=== PATIENT | female | born 1990 | race Caucasian/White ===

== ENCOUNTER 2017-12-13 13:03 | Inpatient (IN) | payer BC ==
[2017-12-13] MEDS ORDERED: NS 1,000 ML IV ONE ×2 (13:07→14:28)
--- NOTE | 2017-12-13 13:09 | EDPHY ---
H & P Time Seen by Provider: 12/13/17 13:07 HPI/ROS: CHIEF COMPLAINT: Altered status HISTORY OF PRESENT ILLNESS: Patient is a 27-year-old female who is brought in by EMS unresponsive. Her roommate states that she was acting normally last night but has a history anxiety and ADD. She did not get up this morning and that went into her room around 12:30 this afternoon and found her unresponsive. She occasionally moans and will respond to painful stimuli. She is moving all extremities spontaneously. No signs of trauma. She takes Klonopin, abuse for Adderall regularly. Her pill bottles were brought in with her in appear to have normal counts. She has stable vital signs. REVIEW OF SYSTEMS: Unable to obtain secondary to condition EXAM: GENERAL: Will open eyes, will groan, response to painful stimuli HEAD: Atraumatic, normocephalic. EYES: Pupils for equal round and reactive to light, extraocular movements intact, sclera anicteric, conjunctiva are normal. ENT: TMs normal, nares patent, oropharynx clear without exudates. Moist mucous membranes. NECK: Normal range of motion, supple without lymphadenopathy or JVD. LUNGS: Breath sounds clear to auscultation bilaterally and equal. No wheezes rales or rhonchi. HEART: Regular rate and rhythm without murmurs, rubs or gallops. ABDOMEN: Soft, nontender, normoactive bowel sounds. No guarding, no rebound. No masses appreciated. BACK: No CVA tenderness, no spinal tenderness, step-offs or deformities EXTREMITIES: Normal range of motion, no pitting or edema. No clubbing or cyanosis. NEUROLOGICAL: Does not cooperate with cranial nerve exam. Moaning. 5/5 strength, normal movement in all extremities PSYCH: Unresponsive SKIN: Warm, dry, normal turgor, no visible rashes or lesions. Source: EMS Exam Limitations: Clinical condition - Medical/Surgical History Other PMH: Able to obtain - Family History Significant Family History: Other (Unknown) - Social History Additional Social History: Unknown due to condition Constitutional: Initial Vital Signs Temperature (C) 36.8 C 12/13/17 13:11 Heart Rate 90 12/13/17 13:11 Respiratory Rate 18 12/13/17 13:11 Blood Pressure 113/84 H 12/13/17 13:11 O2 Sat (%) 100 12/13/17 13:11 O2 Delivery Mode Room Air Allergies/Adverse Reactions: No Known Allergies Allergy (Verified 12/14/17 09:20) Home Medications: Medication Instructions Recorded busPIRone [Buspar (*)] 10 mg PO Q8H PRN 12/13/17 clonazePAM [klonoPIN (*)] 1 mg PO Q12H PRN 12/13/17 lamoTRIgine [LamICTAL] 50 mg PO DAILY 12/13/17 Amphet Asp and D/Amphet [Adderall 10 mg PO BID 12/14/17 10 MG (*)] Amphetamine/Dex 15mg 15 mg PO BID 12/14/17 Aspirin/Acetaminophen/Caffeine 1 each PO DAILY PRN 12/14/17 [Excedrin Extra Strength Caplet] Dextroamphetamine/Amphetamine 30 mg PO ,12/14/17 [Adderall Xr 30 mg Capsule] Lisdexamfetamine Dimesylate 70 mg PO DAILY 12/14/17 [Vyvanse] Lurasidone HCl [Latuda] 20 mg PO DAILY 12/14/17 Oxcarbazepine [Oxcarbazepine] 150 mg PO DAILY 12/14/17 Oxcarbazepine [Oxcarbazepine] 300 mg PO DAILY 12/14/17 Medical Decision Making - Diagnostics EKG Interpretation: An EKG obtained and was read and documented in trace view. Please see trace view for full reading and report. Sinus rhythm, no interval abnormalities Imaging: Discussed imaging studies w/ inbound sales consultant Radiologist ED Course/Re-evaluation: 2:00 p.m. the patient has low bicarb and increased anion gap. Alcohol level is negative. Glucose is normal. According to paramedics no sign of toxic alcohol ingestion. Her salicylates are normal. Will add on a CK-MB, carboxyhemoglobin level, arterial blood gas, will need to catheterized for urine. 10:30 p.m. the patient remains unresponsive. We were able to speak with dad states she has had chronic headaches and abdominal pain for the last several weeks. He states that she has a history of alcoholism and polysubstance abuse and has been to rehab. He also commented that she has taken too much sleep medicine the past an effort to sleep. He also states that he could not contact her this morning that he is the one that called police who broke down her door and found her unresponsive. 2:40 p.m. I discussed the case with Dr. Josselyn Rowell who will admit to the ICU. She requests lactate and blood cultures be sent. At this point the patient is not consistent for sepsis because she does not have a source of infection and is not febrile and does not have white count. I suspect toxic alcohol verses other toxin at this point. She could have alcoholic ketoacidosis however she is not tremulous or tachycardic or showing signs of withdrawal. 3:00 p.m. the patient does have diffuse fatty liver seen on abdominal CT. She is slightly elevated LFTs. Her Tylenol level is normal but I will start N- acetylcysteine in case. Differential Diagnosis: Partial list of the Differential diagnosis considered include but were not limited to; overdose, head injury, suicidality and although unlikely based on the history and physical exam, I also considered infection, abdominal catastrophe. Critical Care Time: Critical care time spent by me, Dr. Banks exclusive with this patient was 45 minutes, exclusive of the PA time exclusive of procedures. The organ system that was at risk was cardiovascular and I gave IV fluids, consultation, lab work , admission to prevent worsening of the patient's condition - Data Points Laboratory Results: Laboratory Results 12/13/17 13:10 12/13/17 13:10 Medications Given: Enoxaparin Sodium (Lovenox) 40 mg SC DAILY CLYDE Stop: 06/12/18 08:59 Last Admin: 12/14/17 08:58 Dose: 40 mg Potassium Chloride 40 meq/ (Sodium Chloride) 1,000 mls @ 75 mls/hr IV CONT CLYDE Stop: 06/12/18 13:59 Last Admin: 12/14/17 21:00 Dose: 1,000 mls Famotidine/Sodium Chloride (Pepcid 20 Mg (Premix)) 50 mls @ 200 mls/hr IV Q12HRS CLYDE Stop: 06/12/18 20:59 Last Admin: 12/14/17 23:50 Dose: 50 mls Potassium Chloride (Potassium Cl 10 Meq (Premix)) 100 mls @ 100 mls/hr IV Q1H CLYDE Stop: 12/15/17 09:29 Last Admin: 12/15/17 06:03 Dose: 100 mls Discontinued Medications Sodium Chloride (Ns) 1,000 mls @ 0 mls/hr IV ONCE ONE; Wide Open PRN Reason: Protocol Stop: 12/13/17 13:08 Last Admin: 12/13/17 13:17 Dose: 1,000 mls Sodium Chloride (Ns) 1,000 mls @ 0 mls/hr IV ONCE ONE; Wide Open PRN Reason: Protocol Stop: 12/13/17 14:29 Last Admin: 12/13/17 14:34 Dose: 1,000 mls Acetylcysteine 8,850 mg/ (Dextrose) 244.25 mls @ 244.25 mls/hr IV ONCE ONE Stop: 12/13/17 16:29 Last Admin: 12/13/17 15:49 Dose: 244.25 mls Acetylcysteine 2,950 mg/ (Dextrose) 514.75 mls @ 128.688 mls/hr IV ONCE ONE Stop: 12/13/17 20:29 Last Admin: 12/13/17 17:00 Dose: 514.75 mls Acetylcysteine 5,900 mg/ (Dextrose) 1,029.5 mls @ 64.344 mls/hr IV ONCE ONE Stop: 12/14/17 12:29 Last Admin: 12/13/17 21:43 Dose: 1,029.5 mls Sodium Bicarbonate 150 meq/ (Dextrose) 1,150 mls @ 75 mls/hr IV CONT [facility] Stop: 06/11/18 17:14 Last Admin: 12/14/17 12:03 Dose: 1,150 mls Potassium Chloride (Potassium Cl 10 Meq (Premix)) 100 mls @ 100 mls/hr IV Q1H [facility] Stop: 12/14/17 01:59 Last Admin: 12/14/17 00:27 Dose: 100 mls Potassium Chloride (Potassium Cl 10 Meq (Premix)) 100 mls @ 100 mls/hr IV Q1H [facility] Stop: 12/14/17 11:36 Last Admin: 12/14/17 11:00 Dose: 100 mls Potassium Chloride (Potassium Cl 10 Meq (Premix)) 100 mls @ 100 mls/hr IV Q1H [facility] Stop: 12/14/17 17:32 Last Admin: 12/14/17 17:00 Dose: 100 mls Potassium Chloride 10 meq/ (Sodium Chloride) 100 mls @ 100 mls/hr IV Q1H [facility] Stop: 12/14/17 19:29 Last Admin: 12/14/17 20:00 Dose: 100 mls Potassium Chloride (Potassium Cl 10 Meq (Premix)) 100 mls @ 100 mls/hr IV Q1H [facility] Stop: 12/15/17 01:29 Last Admin: 12/15/17 01:36 Dose: 100 mls Sodium Bicarbonate (Sodium Bicarbonate) 50 meq IVP ONCE ONE Stop: 12/13/17 15:56 Last Admin: 12/13/17 15:58 Dose: 50 meq Departure - Departure Disposition: [facility] Inpatient Acute Condition: Critical
[2017-12-13 13:21] LABS: PLATELET COUNT 531 10^3/uL (150-400)
--- NOTE | 2017-12-13 13:21 | CPEKG ---
Heart Rate: 86 RR Interval: 698 P-R Interval: 140 QRSD Interval: 90 QT Interval: 384 QTC Interval: 460 P [place]: 65 QRS [place]: 20 T Wave [place]: 56 EKG Severity - ABNORMAL ECG - EKG Impression: SINUS RHYTHM Electronically Signed By: Abhi Banks 13-Dec-2017 13:28:23
[2017-12-13] MEDS ORDERED: IOPAMIDOL (ISOVUE-300) 100 ML BTL ONE (14:30)
[2017-12-13] MEDS ORDERED: ACETYLCYSTEINE IV PROTOCOL 1 EACH MISC SCH (15:15)
[2017-12-13] MEDS ORDERED: D5W IV ONE ×3 (15:30→20:30)
[2017-12-13] MEDS ORDERED: ACETYLCYSTEINE IV ONE ×3 (15:30→20:30)
[2017-12-13] MEDS ORDERED: SODIUM BICARBONATE 50 MEQ/50 ML SYR ONE (15:52)
[2017-12-13] MEDS ORDERED: SODIUM BICARBONATE 50 MEQ/50 ML SYR IVP ONE (15:55)
--- NOTE | 2017-12-13 17:04 | ASMTCMCOM ---
CM Note CM Note Notes: Pt presented to the ED via EMS from home after being found unresponsive. Pt admitted for acidosis and continued unresponsiveness. Spoke w/pt's father, Rafael Burger ([phone]) who lives in [place], [place]. Rafael said he last spoke w/the pt last night around 10:30p.m. but after multiple attempts to call her this morning he decided to call the apartment green building energy engineer to assist w/contacting pt's roommates to check on her. Pt's bedroom was locked so EMS were called to open her door. Pt's brother, Jorge Burger ([phone] later arrived to the ED after driving from [facility]. Marco states pt's mother was recently visiting the pt in [place] about a week ago and had thought pt was doing "much better." Marco also states their Grandfather is currently dying and so their mother went to be w/him in [place]. Rafael states pt has a history of ETOH and prescription medication abuse (last rehab stay was in 2013 in [place], [place]), as well as depression, ADD, anxiety and difficulty sleeping. Pt has a history of "overdoing the sleep meds" but has never not been able to wake up. Pt's psychiatrist is Dr. Alvarado Lai ([phone]) and Rafael states pt recently had some medication changes; pt recently started taking Lamictal but after a week of adverse side effects she stopped it. There was also mention of starting/stopping Latuda and starting Wellbutrin. Rafael states pt had been reporting abdominal pain and headaches recently. Exact DC needs unknown at this time. CM to follow. Date Signed: 12/13/2017 05:03 PM Electronically Signed By:Linda Kelly RN
[2017-12-13] MEDS ORDERED: ONDANSETRON 4 MG/2 ML VIAL IVP PRN (17:08)
--- NOTE | 2017-12-13 18:01 | GHP ---
[f rep st] HISTORY AND PHYSICAL DATE OF ADMISSION: 12/13/2017 CHIEF COMPLAINT: Unresponsive. HISTORY: The patient is a 27-year-old female who was found unresponsive in her bedroom. Her brother is at bedside. He reports a longstanding history of polysubstance abuse and recent increased anxiet y and depression due to troubles at work with her performance. He spoke to her last night on the trinity ne, and she had slurred speech and sounded "stoned." Her brother works as a theology teacher. He was very worried about her and called her multiple times throughout the night, and she did not answer the phon e. This morning, he called EMS and asked them to check on her, and she was found with her bedroom do or locked. I believe the door was kicked in. She lives with roommates. They just arrived home righ t when the paramedics arrived. According to her brother, she had kind of been "off the rails for the last 4 days," and she is being seen actively by a psychiatrist, who is doing extensive medication ti tration, including a lot of benzodiazepines, which her brother questions their use given her history of addiction. At this point, she remains unresponsive, although she does moan and withdraw to painfu l stimuli. Per EMS, pill bottles at the site had normal pill counts. Her brother is going to go navjot k to her apartment and see if he can find any other evidence regarding what she may have taken. Her brother lives in [place] and drove 7 hours straight here when he knew this was not going well. He is in communication with her parents. PAST MEDICAL HISTORY: 1. History of polysubstance abuse including alcohol, prescription meds, green party drugs such as cocaine and hilary. She has done since then rehab. 2. Anxiety, depression and ADD. MEDICATIONS: Please see computerized record for full detailed list. ALLERGIES: Unable to assess at this time. SOCIAL HISTORY: According to her brother, she vapes. She has been a smoker in the past. Current al cohol status is unknown. She is currently employed, but recent behaviors have put her job at risk. She lives with roommates. Family is living in [place] and [place]. REVIEW OF SYSTEMS: Review of systems is unobtainable due to patient being unresponsive. FAMILY HISTORY: Unobtainable for same reason. PHYSICAL EXAMINATION: GENERAL: This is a well-developed, well-nourished female, unresponsive. She looks pale, breathing fast. VITAL SIGNS: Temp is 36.8, pulse 88, blood pressure 121/79, satting 100 % on room air. EYES: Normal conjunctivae. Her pupils are dilated, but reactive. ENT: Normal ears and nose. Unable to assess hearing. Oropharynx is dry. NECK: Trachea midline. No thyromegaly. CHEST: Normal effort. LUNGS: Clear to auscultation bilaterally. CARDIOVASCULAR: Regular rate and rhythm. No murmur. No extremity edema. ABDOMEN: Soft, nontender. She has a very distended palpa ble bladder. No hepatosplenomegaly. SKIN: Warm, dry intact without rash. MUSCULOSKELETAL: No cya nosis or clubbing. Unable to assess strength or sensation due to mental status. PSYCH: She is unre sponsive, only very mildly is able to withdraw to very deep stimuli; otherwise, unable to give any hi story. LABS: White count 3.27, hematocrit 45.6, platelets 531. Sodium 135, potassium 5.2, chloride 104, bi carb 7, anion gap is 24, BUN 12, creatinine 0.8, glucose 79, AST 120, ALT is 105. test is negative. Lactate 0.5. Aspirin and Tylenol levels are negative. Urinalysis is negative. ABG shows a pH of 7.1, pCO2 of 11, PO2 of 138, bicarb of 4. EKG reviewed by me. My personal interpretation i s normal sinus rhythm, no ST-T wave changes. Head CT is negative. CT scan of the abdomen and pelvis shows a distended bladder, but otherwise negative. ASSESSMENT/PLAN: 1. Encephalopathy. I suspect this is toxic given the history described above. Will continue suppor tive care. 2. Anion gap metabolic acidosis, pH of 7.1. I suspect this is related to poor perfusion. I think c hances of an atypical alcohol ingestion are rare. Will start her on a bicarb drip and follow serial ABGs and Chem-7. 3. Urinary retention. My suspicion is one of her drugs that she has overtaken has anticholinergic e ffects. Will place a Dougherty catheter. 4. History of polysubstance abuse. A mental health hold should be placed once she wakes up if any e vidence of suicidal ideation is uncovered. CODE STATUS: Full. ADMISSION STATUS: 1. Will admit to inpatient as she is medically complex, anticipate greater than 2 midnights. 2. DVT prophylaxis. She is high risk. We will place her on subcu Lovenox. /[id number]/MODL
[2017-12-13] MEDS: SODIUM BICARBONATE 150 MEQ in D5W 1,000 ML IV SCH (18:39)
[2017-12-13 21:09] LABS: CREATINE KINASE 502 IU/L (0-156)
--- NOTE | 2017-12-13 21:57 | CPEKG ---
Heart Rate: 100 RR Interval: 600 P-R Interval: 148 QRSD Interval: 92 QT Interval: 376 QTC Interval: 485 P [place]: 57 QRS [place]: 2 T Wave [place]: -8 EKG Severity - ABNORMAL ECG - EKG Impression: SINUS TACHYCARDIA EKG Impression: ABNORMAL Q SUGGESTS ANTERIOR INFARCT EKG Impression: BORDERLINE T ABNORMALITIES, DIFFUSE LEADS EKG Impression: BORDERLINE PROLONGED QT INTERVAL Electronically Signed By: Ez Murphy 14-Dec-2017 11:41:34
[2017-12-13] MEDS ORDERED: PROTOCOL CALCIUM 1 DOSE IV PRN (22:14)
[2017-12-13] MEDS ORDERED: PROTOCOL POTASSIUM 1 DOSE MISC PRN (22:14)
[2017-12-13] MEDS ORDERED: PROTOCOL MAGNESIUM 1 DOSE IV PRN (22:14)
--- NOTE | 2017-12-13 22:14 | HOSPPROG ---
Hospitalist Progress Note Assessment/Plan: Poison consulted case #[id number] They agree that supportive care is predominant care at this point. Doubt toxic alcohol given her acidosis has improved with hydration, which it would not if toxic alcohol involved. No evidence for this in her locked bedroom where she was found. Brother went to her apartment and found Vyvanse, klonopin , buspar, adderal, latuda Continue empiric tx for Tylenol overdose, check LFT in am. Keep K/Mg/Ca high end of normal given longish QT on EKG Watch for serotonin syndrome (fever, etc) Objective: Vital Signs Temp Pulse Resp BP Pulse Ox 36.4 C 104 H 24 H 115/87 H 100 12/13/17 19:30 12/13/17 22:00 12/13/17 22:00 12/13/17 22:00 12/13/17 22:00 Laboratory Results 12/13/17 20:30 12/12/17 12/13/17 12/14/17 05:59 05:59 05:59 Intake Total 384 Output Total 1650 Balance -1266 ICD10 Worksheet Patient Problems: Problems Problem Status Onset Acidosis Acute - ICD10 Problem Qualifiers (1) Acidosis
[2017-12-13] MEDS: POTASSIUM Cl (KCl) 100 ML IV SCH ×2 (22:50→23:45)
[2017-12-14] MEDS: POTASSIUM Cl (KCl) 100 ML IV SCH ×11 (00:27→23:49)
[2017-12-14 05:58] LABS: INR 1.42 (0.83-1.16); PROTIME(PATIENT) 17.5 SEC (12.0-15.0)
[2017-12-14 06:01] LABS: PLATELET COUNT 384 10^3/uL (150-400)
--- NOTE | 2017-12-14 07:36 | PDMN ---
Medical Necessity Medical necessity: Pt meets inpt criteria per MD order and MCG M-153, Drug Ingestion or Overdose, A-1 days, est LOS>2MN for treatment of encephalopathy, metabolic acidosis, possible drug toxicity, presented w/unresponsiveness, abnormal electrolytes, abnormal blood gases, elev LFT's, elev troponins, blood cultures pending, urinary retention, hx of polysubstance abuse, anxiety/ depression and ADD. Bicarb gtt, serial ABG's/chem-7, IV acetylcysteine, ICU monitoring and treatment/ further workup for med complexity.
[2017-12-14] MEDS: ENOXAPARIN 40 MG/0.4 ML SYR SC SCH (08:58)
--- NOTE | 2017-12-14 09:25 | CPEKG ---
Heart Rate: 119 RR Interval: 504 P-R Interval: 160 QRSD Interval: 90 QT Interval: 316 QTC Interval: 445 P [place]: 73 QRS [place]: 8 T Wave [place]: -88 EKG Severity - ABNORMAL ECG - EKG Impression: SINUS TACHYCARDIA EKG Impression: RIGHT ATRIAL ABNORMALITY EKG Impression: ABNORMAL Q SUGGESTS ANTERIOR INFARCT EKG Impression: REPOL ABNRM SUGGESTS ISCHEMIA, DIFFUSE LEADS Electronically Signed By: Ez Murphy 14-Dec-2017 11:41:54
--- NOTE | 2017-12-14 11:18 | HOSPPROG ---
Hospitalist Progress Note Assessment/Plan: 27 yo F w depression found down w met acidosis electrolyte disturbance, + trop, unresponsive encephalopathy: toxic. 2/2 multiple meds no opiates pCO2 was low on admit so not hypoventilating follow non con head ct OK AGMA: ketosis toxic alcohols considered, felt less likely given correction w IVF toxicology corrected continue bicarb gtt until bicarb > 17 + trop: multiple ekg's w no territorial changes suspected 2/2 acidosis echo pending polysubstance OD :presumed pill count OK M1 hold when alert proph: sc heparin ? tylenol overdoseL: complete NAc dispo: icu proph: enox Subjective: case d/w dr fernández Objective: Vital Signs Temp Pulse Resp BP Pulse Ox 36.6 C 91 16 109/72 99 12/14/17 08:00 12/14/17 10:00 12/14/17 10:00 12/14/17 10:00 12/14/17 10:00 Laboratory Results 12/14/17 05:25 12/14/17 05:25 12/13/17 12/14/17 12/15/17 05:59 05:59 05:59 Intake Total 2459 Output Total 2850 240 Balance -391 -240 PT 17.5 SEC (12.0-15.0) H 12/14/17 05:25 INR 1.42 (0.83-1.16) H 12/14/17 05:25 - Physical Exam Constitutional: other (unresponsive) Eyes: PERRL, anicteric sclera Ears, Nose, Mouth, Throat: moist mucous membranes, hearing normal Cardiovascular: regular rate and rhythym, no murmur, rub, or gallop Respiratory: no respiratory distress, no rales or rhonchi Gastrointestinal: normoactive bowel sounds, soft, non-tender abdomen Genitourinary: no bladder fullness, sandoval in urethra Skin: warm, normal color Musculoskeletal: full muscle strength, no muscle tenderness Neurologic: No AAOx3, No sensation intact bilaterally Psychiatric: No interacting appropriately ICD10 Worksheet Patient Problems: Problems Problem Status Onset Acidosis Acute
[2017-12-14 12:03] LABS: CREATINE KINASE 1340 IU/L (0-156)
[2017-12-14] MEDS: SODIUM BICARBONATE 150 MEQ in D5W 1,000 ML IV SCH (12:03)
[2017-12-14] MEDS: POTASSIUM Cl (KCl) 40 MEQ in NS 1,000 ML IV SCH ×2 (14:41→21:00)
--- NOTE | 2017-12-14 14:49 | GCON ---
[f rep st] CONSULTATION PULMONARY CRITICAL CARE CONSULTATION DATE OF CONSULTATION: 12/14/2017 REASON FOR CONSULTATION: Drug overdose, altered mental status. HISTORY OF PRESENT ILLNESS: The patient is a 27-year-old who has a history of polysubstance drug abu se. She apparently had slurred speech on the phone according to her brother last night. He was subs equently unable to contact her. This morning, he called for a check on the patient. She was found u nresponsive in her bedroom and was transported to the emergency department. She was unresponsive on arrival, with moaning and withdrawal to painful stimuli. Pill bottles were in her room, but by repor t, pill counts were normal. She does have a history of psychiatric disease and is followed by a psyc hiatrist who has recently been adjusting medications, including benzodiazepines. She has been on oxc arbazepine, Latuda, Vyvanse, as well as Adderall, Klonopin, Lamictal, BuSpar, and dextroamphetamine. By report, she does not take opiates. She does have a history of recreational drug use, including c ocaine and alcohol use. Ingestion of recreational drugs is unknown. Following her admission to the intensive care unit, she has remained quite lethargic. She arouses we akly at times and is nonfocal. She is on a bicarb drip for acidosis, which has resolved and is empir ically being treated with acetylcysteine despite a normal acetaminophen on admission. Salicylates we re negative. Tox screen was negative, except for amphetamines. PAST MEDICAL HISTORY: Remarkable for depression and anxiety, attention deficit hyperactivity disorde r, and polysubstance abuse. SOCIAL HISTORY: She lives with roommates. She does have a job, but apparently, her job may be at [employer], secondary to her psychiatric history and drug use. Family is apparently from [place] in [place]. She smoked cigarettes in the past. Current alcohol use is unknown. FAMILY HISTORY: Unobtainable. REVIEW OF SYSTEMS: Unobtainable. PHYSICAL EXAMINATION: GENERAL: Reveals a young woman who is in bed and sleeping. She arouses weakl y to stimulation, moves all extremities, rolls over, but is not verbal at this time. Eyes are closed . VITAL SIGNS: Normal. Blood pressure is approximately 115/70, heart rate 95 with sinus rhythm on the monitor. She is on room air with a respiratory rate of 16. Saturations are 97%. She is afebril e. HEENT: Remarkable for equal and reactive pupils, dry mucous membranes. NECK: No lymphadenopath y or thyromegaly, and no jugular venous distention. CHEST: Clear. Breath sounds are diminished. S he will not take voluntary deep breaths for me. HEART: Regular in rate and rhythm. A systolic murm ur is present. There are no obvious gallops. ABDOMEN: Soft and not apparently tender. There is no organomegaly. : A Dougherty catheter is in place with good urine output. EXTREMITIES: Unremarkable for edema, cords, or tenderness. SKIN: Without significant lesions or rash. NEUROLOGIC: Remarkabl e for her obtundation. She does withdraw and move all extremities appropriately to stimulation. Her sister is at her bedside. LABORATORY/IMAGING: CT scan of the head on admission was unremarkable for any acute findings. Abdominal CT scan was within normal limits with the exception of steatosis of the liver. Electrocardiogram shows a sinus tachycardia. There is diffuse ST-segment depression and poor R-wave progression through V2. Cardiac echo is pending. By report, left ventricular ejection fraction looked normal. White blood cell count is 3400, hematocrit 35, platelets are 384,000. INR is 1.42. Arterial blood g as currently shows a pH of 7.48, pCO2 of 22, and a PO2 of 86. On admission, the pH was 7.1 with pCO2 of 11, pO2 of 138. Total bicarbonate on that sample was 4. It is now 17. Base excess has signific antly improved from approximately -25 to -5. Sodium is 136, current potassium 2.5, CO2 is 25 with an anion gap of 8, BUN is 2, creatinine 0.3, glucose 142. Calcium is 8.5. Troponin is positive at 17 with a positive CK-MB of 7.2%. ASSESSMENT: 1. Polysubstance overdose. This is associated with obtundation/abnormal mental status/encephalopath y. This is likely drug induced; however, we do not know how long she could possibly have been down f or prior to being found and if she was hypotensive or anoxic. An anoxic insult to the brain cannot b e excluded at this time; however, initial CT scan of the head was negative. 2. Metabolic acidosis, possibly secondary to hypotension versus alcoholic ketoacidosis versus drug a ffects. This arterial blood gas is now normalized, as has bicarbonate. 3. Metabolic: Hypokalemia. Potassium is being replaced, but remains low. Further potassium will b e given. 4. Elevated troponin and CK-MB with a diffusely abnormal EKG. Query diffuse insult related to hypot ension and/or possible undocumented cardiac arrhythmia prior to being found. Cardiology consultation will be requested. Complete cardiac echo results are pending. 5. History of depression and anxiety. A suicide attempt cannot be excluded. When she wakes up, she will be placed on a M1 hold until this can be sorted out. 6. Elevated liver function studies. AST on admission was 162 with an ALT of 88. Steatosis is noted on CT scan. This is all possibly secondary to alcohol versus possible shock liver. LFTs will be fo llowed. 7. Prophylaxis: She is on enoxaparin. Famotidine will be added intravenously until she starts eati ng. PLAN/RECOMMENDATIONS: Please see the specific issues as outlined above. The patient will be kept in the intensive care unit and monitored closely. Neurologic checks will be maintained. Electrolytes will be repleted. Intravenous fluids will be continued. Bicarbonate will be decreased and a potassi um drip will be started. In addition, as needed potassium will be given per protocols. She was star aguilar empirically on acetylcysteine. This protocol will be completed. Famotidine will be added. Miesha saeed will be followed. Further plans and recommendations will be made based on her progress over t he next 12-24 hours. /[id number]/MODL
--- NOTE | 2017-12-14 16:32 | ECHO ---
[email or web address] [address] [address] Main: [phone] Fax: Transthoracic Echocardiogram Name: CAROL NAVA MR#: [id number] Study Date: 12/14/2017 Study Time: 11:48 AM Date of : 1990 Age: 27 year(s) Height: 162.6 cm (64 in.) Weight: 55.79 kg (123 lb.) BSA: 1.59 m2 Gender: Female Examination: Echo Indication: OD, Found down, Elevated Troponins Image Quality: Contrast: Requested by: Harshal Brooks BP: 112 mmHg/71 mmHg Heart Rate: Rhythm: Tachycardia Indication: OD, Found down, Elevated Troponins Procedure Staff Supervisor Sewing Department: Greg Carver RDCS Reading Physician: Ghulam Rasmussen MD Requesting Provider: Conclusions: Normal size left ventricle. No LV hypertrophy. Normal global systolic LV function. EF is 70 %. No regional wall motion abnormality. Normal diastolic LV function. Normal size right ventricle. Normal RV function. The left atrium is normal in size. The right atrium is normal in size. The aorta is normal. No pericardial effusion. Measurements: Chambers Valvular Assessment AV/MV Valvular Assessment TV/PV Normal Normal Normal Name Value Range Name Value Range Name Value Range Ao Laura (MM): 2.9 cm (2.2 cm-3.7 AV Vmax: 1.78 m/s (1 m/s-1.7 PV Vmax: 1.29 m/s (0.6 m/s-0.9 cm) m/s) m/s) IVSd (2D): 0.6 cm (0.6 cm-1.1 AV maxP mmHg ( - ) PV PGmax: 7 mmHg ( - ) cm) LVOT Vmax: 1.38 m/s (0.7 m/s-1.1 LVDd (2D): 5.1 cm (3.9 cm-5.3 m/s) cm) AR (PHT): 505 ms ( - ) LVDs (2D): 3.1 cm (2.1 cm-4 MV E Vmax: 1.04 m/s ( - ) cm) MV A Vmax: 0.93 m/s ( - ) LVPWd (2D): 0.9 cm ( - ) MV E/A: 1.12 ( - ) LVEF (2D): 70 (>=54 %) Continued Measurements: Chambers Valvular Assessment AV/MV Patient: CAROL NAVA Study Date: 12/14/2017 Page 1 of 2 11:48 AM Name Value Name Value LADs Lon.2 cm MV E' Septal: 0.12 m/s LA Area: 16.0 cm2 MV E/E' Septal: 9.00 LA Volume: 43 ml MV E/E' Lateral: 8.00 LA Volume Index: 27.0 ml/m2 AR Vmax: 4.18 cm/s Findings: Left Ventricle: Normal size left ventricle. No LV hypertrophy. Normal global systolic LV function. EF is 70 %. No regional wall motion abnormality. Normal diastolic LV function. Right Ventricle: Normal size right ventricle. Normal RV function. Left Atrium: The left atrium is normal in size. Right Atrium: The right atrium is normal in size. Mitral Valve: The mitral valve is normal in appearance and function. There is no mitral valve regurgitation. Aortic Valve: The aortic valve is tri-leaflet. Mild aortic valve regurgitation is present. Tricuspid Valve: The tricuspid valve is normal in appearance and function. Trivial tricuspid valve regurgitation. Pulmonic Valve: The pulmonic valve is normal in appearance and function. Aorta: The aorta is normal. Pericardium: No pericardial effusion. ASD: No atrial septal defect. PFO: No evidence of a patent foramen ovale. Exam Comments: BH, HER TROPONINS WERE NEAR 12 FROM THE NURSE, SHE WAS FOUND UNRESPONSIVE SO DR HARSHAL BROOKS WANTED TO SEE FOR WALL MOTION. VITALY JACKSON. (No Signature Object) Patient: CAROL NAVA Study Date: 12/14/2017 Page 2 of 2 11:48 AM [id number]
[2017-12-14] MEDS: POTASSIUM Cl (KCl) 10 MEQ in NS 100 ML IV SCH ×4 (16:37→20:00)
--- NOTE | 2017-12-14 16:45 | CPEKG ---
Heart Rate: 114 RR Interval: 526 P-R Interval: 156 QRSD Interval: 86 QT Interval: 336 QTC Interval: 463 P Jefferson: 72 QRS Jefferson: 18 T Wave Jefferson: -49 EKG Severity - ABNORMAL ECG - EKG Impression: SINUS TACHYCARDIA EKG Impression: REPOL ABNRM SUGGESTS ISCHEMIA, DIFFUSE LEADS EKG Impression: RAA Electronically Signed By: Ez Murphy 14-Dec-2017 18:23:16
--- NOTE | 2017-12-14 18:45 | GCON ---
[f rep st] CONSULTATION CARDIOLOGY CONSULTATION DATE OF CONSULTATION: 12/14/2017 REFERRING PHYSICIAN: Luis Martinez MD INDICATIONS FOR CONSULTATION: Elevated troponin, in the setting of drug overdose and altered mental status. HISTORY OF PRESENT ILLNESS: Barbra is a 27-year-old female who has a known history of polysubstance abuse, including a past history of alcohol, requiring rehab admission approximately 4 years ago, as w ell as a history of use of cocaine per her brother, who is a expeller operator and who is at her bedside. Ric matta recently moved to [place] earlier this month. 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 Her mother, brother, and sister provided her history, since she is lethargic and unresponsive at the time of my examination. They report that she has had some recent stressors in her life: Loss of a friend, feeling lonely, l iving on her own, away from her family which is originally from [place]. Her brother was concern ed about her, and approximately 2 nights ago had contacted her. She was slurring words on the phone. Attempts to call her back were unsuccessful. Ultimately, the following morning, when she was unabl e to be contacted, 911 was called. She was found unresponsive on arrival by paramedics, with evidenc e of moaning and withdrawal to painful stimuli. Upon arrival in the emergency department, initial ECG demonstrated normal sinus rhythm at 86 beats pe r minute, with borderline QT interval of 460 msec, with evidence of Q-waves in V1 and V2, with no oth er ECG abnormalities. Lab work also on admission demonstrated significant metabolic acidosis, with pH of 7.10, pCO2 of 11, and pO2 of 138. Potassium level was 5.2. AST of 128, ALT of 105. Note, magnesium on admission of 2 .3. CK-MB fraction of 12.9. Initial troponin of 0.945. Serial troponins have been drawn, which have marlene nded from 0.945, up to 5.120, up to 12.2, and most recent value from this morning at 17.4. CK-MB fra ction has increased from 12.9, to 15.7 to 97.1. Subsequent ECGs have demonstrated gradual progression of a diffuse ST-segment depression in the infer ior leads and across the precordial leads. QT intervals have fluctuated up to 485 msec. She persist s having Q-waves in V1 and V2. There is no evidence of ST elevation. Full urine drug screen was negative for drugs of abuse, with the exception of amphetamines. She does have a history of underlying depression, anxiety, and attention deficit disorder, and is being follo wed by a psychiatrist who has been modifying medications. CURRENT MEDICATIONS: Include, oxcarbazepine, Latuda, Vyvanse, Adderall, Klonopin, Lamictal, BuSpar, and dextro-amphetamine. REVIEW OF SYSTEMS: Unobtainable, secondary to patient's current condition of unresponsiveness. PAST MEDICAL: 1. Depression. 2. Anxiety. 3. Attention deficit disorder. 4. History of polysubstance abuse. SOCIAL: She recently moved to [place] earlier this month, originally from [place]. She had been working as an temporary staff accountant. She does not smoke cigarettes. She does have a history of alcohol abuse, and had been in rehab 4 years ago. She has also been known to use cocaine. FAMILY: No family history of premature coronary artery disease or arrhythmias per family. PHYSICAL EXAMINATION: GENERAL: The patient is sleeping, arouses weakly with stimulation, but sleeps throughout the course. VITAL SIGNS: Blood pressure of 123/79, heart rate of 100 in sinus rhythm, r espiratory rate of 16, oxygen saturation 97% on room air. NECK: There is no evidence of JVD or hernandez tid bruits. LUNGS: Clear to auscultation anteriorly. CARDIAC: S1, S2. Regular rate and rhythm. No murmurs, rubs, or gallops. ABDOMEN: Soft. Not tender to palpation. There are no abdominal brui ts are pulsatile mass. EXTREMITIES: Distal pulses are intact. There is no evidence of cyanosis, cl ubbing, or edema. DIAGNOSTIC DATA: 1. Complete 2D echocardiogram performed today demonstrates normal left ventricular function, with LV EF of 70%. There is no evidence of wall motion abnormalities. Valves are unremarkable. Right ventr icular size and function are normal. Pulmonary pressures are normal. There is no evidence of perica rdial effusion. 2. ECG: She has had 4 ECGs to date, with progressive ST-segment depression as outlined above. No e vidence of acute ST-segment elevation. 3. Lab work: a. White blood cell count of 3.39, hemoglobin of 12.4, hematocrit 34.8, platelet count 384. INR 1.4 2. b. Current blood gas from this morning with pH 7.48, pCO2 of 22, and PO2 of 86. c. Sodium of 135, potassium 3.0, chloride of 107, bicarb 17, BUN 3, creatinine 0.4. AST 162, ALT 88 , alkaline phosphatase 45. d. Serial troponins as outlined above. e. Urine drug screen as outlined above, which was negative for all substances, with the exception of amphetamines, which are due to her current medications. IMPRESSION: 1. Elevated troponin, with most recent value of 17, with CK-MB fraction of 97.1. 2. Abnormal ECG, with diffuse ST-segment depression. 3. Polysubstance abuse. 4. Presumed overdose. SUMMARY: Barbra is a 27-year-old female with a known history of polysubstance abuse. She had been t o rehab for alcohol abuse approximately 4 years ago. She had slurred speech on the phone with her br other the evening before her presentation to [facility]. She was found down and unre sponsive, with the exception of moaning at the time of expeller operator arrival. ECGs have evolved over the course of her hospitalization, with diffuse ST-segment depression. Troponins have continued to incr ease to a peak value of 17.4, with CK-MB fraction of 97.1. Echocardiogram demonstrates normal left v entricular size and function, with normal wall motion. Right ventricular size and function are steven l. Echo was unremarkable. I think these troponin elevations most likely represent either the development of a supraventricular tachycardia in the setting of overdose versus the development of hypotension. She has no known histo ry of supraventricular tachycardia or cardiac issues. No indication for emergent left heart catheter ization at this time. Echocardiogram does not show any evidence of a Takotsubo cardiomyopathy. PLAN: 1. Continue to follow serial troponins. 2. Supportive care. 3. Repeat ECG in a.m. 4. Continue telemetry monitoring. 5. Will continue to follow along with her care. I have spent 45 minutes discussing patient's care with the patient's mother, her brother, and sister. I have answered all of their questions. /[id number]/MODL
[2017-12-14] MEDS: FAMOTIDINE 20 MG/NACL 50 ML IV SCH (23:50)
[2017-12-15] MEDS: POTASSIUM Cl (KCl) 100 ML IV SCH ×10 (00:30→22:49)
[2017-12-15 04:52] LABS: PLATELET COUNT 307 10^3/uL (150-400)
[2017-12-15 05:30] LABS: CREATINE KINASE 951 IU/L (0-156)
--- NOTE | 2017-12-15 06:05 | CPEKG ---
Heart Rate: 95 RR Interval: 632 P-R Interval: 140 QRSD Interval: 94 QT Interval: 380 QTC Interval: 478 P Celoron: 69 QRS Celoron: 54 T Wave Celoron: -54 EKG Severity - ABNORMAL ECG - EKG Impression: SINUS RHYTHM EKG Impression: ABNORMAL Q SUGGESTS ANTERIOR INFARCT EKG Impression: NONSPECIFIC REPOL ABNORMALITY, INFERIOR LEADS EKG Impression: BORDERLINE PROLONGED QT INTERVAL Electronically Signed By: Calista Bhakta 15-Dec-2017 06:56:19
[2017-12-15] MEDS: POTASSIUM Cl (KCl) 40 MEQ in NS 1,000 ML IV SCH (07:52)
[2017-12-15] MEDS ORDERED: MAGNESIUM SULF 2 GM/WATER 50 ML IV ONE (09:37)
--- NOTE | 2017-12-15 09:37 | HOSPPROG ---
Hospitalist Progress Note Assessment/Plan: 27 yo F w depression found down w met acidosis electrolyte disturbance, + trop, unresponsive encephalopathy: toxic. 2/2 multiple meds no opiates pCO2 was low on admit so not hypoventilating follow non con head ct OK 12/15: improviing AGMA: ketosis toxic alcohols considered, felt less likely given correction w IVF toxicology corrected continue bicarb gtt until bicarb > 17 resolved bicarb gtt off + trop: multiple ekg's w no territorial changes suspected 2/2 acidosis echo surprsingly normal NSVT noted (see below) peaked at 17 NSVT: likely 2/2 hypokalemia hypokalemia: likely whole body depleted continue repletion give 2 g Mg polysubstance OD :presumed pill count OK M1 hold when alert proph: sc heparin ? tylenol overdoseL: complete NAc dispo: icu proph: enox Subjective: moving extremities, tracking w eyes. case d/w dr han. tele: 3 beats nsvt Objective: Vital Signs Temp Pulse Resp BP Pulse Ox 36.7 C 101 H 13 117/81 H 97 12/15/17 00:00 12/15/17 08:00 12/15/17 08:00 12/15/17 08:00 12/15/17 08:00 Laboratory Results 12/15/17 04:30 12/15/17 04:30 12/14/17 12/15/17 12/16/17 05:59 05:59 05:59 Intake Total 2459 5086 Output Total 2850 2615 Balance -391 2471 PT 17.5 SEC (12.0-15.0) H 12/14/17 05:25 INR 1.42 (0.83-1.16) H 12/14/17 05:25 - Physical Exam Constitutional: no apparent distress, appears nourished Eyes: PERRL, anicteric sclera Ears, Nose, Mouth, Throat: moist mucous membranes, hearing normal Cardiovascular: regular rate and rhythym, no murmur, rub, or gallop Respiratory: no respiratory distress, no rales or rhonchi Gastrointestinal: normoactive bowel sounds, soft, non-tender abdomen Genitourinary: sandoval in urethra Skin: warm, normal color Musculoskeletal: full muscle strength Neurologic: other (somnolent but arousable. RUSSELL. not following commands, some of which may be volitional), No AAOx3 Psychiatric: No interacting appropriately Lymph, Heme, Immunologic: no cervical LAD ICD10 Worksheet Patient Problems: Problems Problem Status Onset Acidosis Acute
[2017-12-15] MEDS: ENOXAPARIN 40 MG/0.4 ML SYR SC SCH (09:58)
[2017-12-15] MEDS: FAMOTIDINE 20 MG/NACL 50 ML IV SCH ×2 (09:58→21:37)
[2017-12-15] MEDS ORDERED: K PHOS 20 MMOL in D5W 250 ML IV ONE (12:00)
--- NOTE | 2017-12-15 12:52 | PDCARPN ---
Cardiology Progress Note Assessment/Plan: Assessment/Plan: 27-year-old female with a history of anxiety and depression as well as polysubstance abuse with past use of alcohol and cocaine. She was admitted on December 13 minimally responsive having been found down at home. By report, she had been down for at least 14 hr. Her hospital course has been complicated by profound hypokalemia, peak troponin of 17, and encephalopathy. 1. Positive troponin: Her echocardiogram shows normal systolic and diastolic function and no regional wall motion abnormalities. This is highly unlikely to represent problem with her coronary arteries. This may represent hypoperfusion and or toxic insult from drugs and acidosis. She may have pericarditis/ myocarditis. Will check ESR and CRP. Troponin is trending down. Could consider a CT coronary angiography for completeness once she is clinically stable. 2. Encephalopathy: Tox screen was only positive for amphetamines. Head CT without acute process. She is slowly improving. 3. Nonsustained ventricular tachycardia: She has had short runs of 3 beats. Ejection fraction is normal. This is likely related to electrolyte abnormalities. Check phosphorus. Continue replete potassium. 4. Hypokalemia: The patient's family reports several days of poor p.o. Intake as well as vomiting and diarrhea. Her initial ketosis and acidemia were concerning for DKA, however the hypokalemia is incongruent with this. Admission glucose was normal. 5. History of anxiety and depression and past polysubstance abuse. In reviewing her outpatient medication regimen she is on several psychoactive medications. This will need to be addressed once her encephalopathy has cleared. 12/15/17 12:55 Subjective: She does not answer questions. I have spoken with her family. The patient does not have a personal history of any cardiovascular disease such as arrhythmia. Her mother does have bicuspid aortic valve. Reviewed/Discussed With: family, multidisciplinary team Objective: Vital Signs (8 Hrs) Pulse Resp BP Pulse Ox 12/15/17 11:00 89 14 119/80 94 12/15/17 10:00 91 15 120/83 H 94 12/15/17 09:00 92 17 120/82 H 96 12/15/17 08:00 101 H 13 117/81 H 97 12/15/17 07:00 90 15 121/76 H 95 12/15/17 05:00 93 Intake/Output (24 Hrs) 12/14/17 12/15/17 12/16/17 05:59 05:59 05:59 Intake Total 2459 5086 Output Total 2850 2615 Balance -391 2471 Intake: Oral (ml) 0 IV Intake (ml) 2374 IV Infused (ml) 2459 2712 Acetylcysteine Inj 2,950 359 mg In D5w 500 ml @ 128. 688 mls/hr IV ONCE ONE Rx #:[id number] Acetylcysteine Inj 5,900 456 600 mg In D5w 1,000 ml @ 64. 344 mls/hr IV ONCE ONE Rx #:[id number] POTASSIUM Cl (KCl) 100 ml 372 @ 100 mls/hr IV Q1H CLYDE Rx#:[id number] Sodium Bicarbonate 150 1644 1740 meq In D5w 1,000 ml @ 75 mls/hr IV CONT CLYDE Rx#: [id number] Output: Urine (ml) 2850 2615 Catheter 2850 2615 Other: Number of Stools Catheter 0 Moaning and writhing in bed. Intermittently follows commands but not consistently. Regular rate and rhythm without murmur gallop Lungs clear anteriorly and laterally without wheeze rhonchi rales abdomen is soft without obvious masses. She does seem mildly tender diffusely to palpation No lower extremity edema Result Diagrams: 12/15/17 04:30 12/15/17 04:30 Cardiac Labs: Cardiac Lab Results (72 Hrs) 12/15/17 12/14/17 12/14/17 04:30 23:54 15:45 CK-MB (CK-2) Fraction 32.50 H Troponin I 14.900 H 15.600 H 17.500 H 12/14/17 12/14/17 12/14/17 11:15 05:25 00:25 CK-MB (CK-2) Fraction 97.10 H Troponin I 17.400 H 12.200 H 5.120 H 12/13/17 20:30 CK-MB (CK-2) Fraction 15.70 H Troponin I 0.945 H EKG: Serial tracings reviewed: On admission: Sinus rhythm without ischemic changes. Progressive tracings show diffuse ST depression with mildly prolonged QT interval. Telemetry: NSR. Three ventricular couplets Echocardiogram: Reviewed: Normal LV size, systolic function, wall motion, diastolic dysfunction. Mild aortic regurgitation. ICD10 Worksheet Patient Problems: Problems Problem Status Onset Acidosis Acute
--- NOTE | 2017-12-15 15:37 | PDINTPN ---
Crowning Inspector Progress Note Assessment/Plan: 27 F with history of polysubstance abuse found down after 14 hours since last contact and lethargic. Tox screen with amphetamines, but source not clear. troponin peaked at 17 and trending down, followed by cards. Minimal arrythmias noted but multiple electrolyte abnormalities found and corrected. * Altered mental status from presumed polysub OD- improving per hospitalist and family. Protecting airway but remains minimally responsive * Troponin- improving. Echo unremarkable and will probably get eventual CT to eval. Possible myocarditis so inflammatory markers pending. * Metabolic acidosis improved. HCO3 dc'd. * LFTs continue to rise. Probably related to hypoperfusion. Observe for now. * Objective: Vital Signs Temp Pulse Resp BP Pulse Ox 36.8 C 84 14 118/76 97 12/15/17 12:00 12/15/17 15:00 12/15/17 15:00 12/15/17 15:00 12/15/17 15:00 Laboratory Results 12/15/17 13:20 12/15/17 13:20 12/14/17 12/15/17 12/16/17 05:59 05:59 05:59 Intake Total 2459 5086 Output Total 2850 2615 Balance -391 2471 PT 17.5 SEC (12.0-15.0) H 12/14/17 05:25 INR 1.42 (0.83-1.16) H 12/14/17 05:25 Physical Exam - Physical Exam General Appearance: no apparent distress, obtunded, thin EENT: PERRL/EOMI Neck: supple Respiratory: lungs clear, normal breath sounds, decreased breath sounds, No respiratory distress, No accessory muscle use Cardiac/Chest: regular rate, rhythm, No edema Abdomen: non-tender, soft, No distended Skin: normal color, warm/dry, No cyanosis Lymphatic: no adenopathy Extremities: No pedal edema Neuro/Psych: cognition abnormalities ICD10 Worksheet Patient Problems: Problems Problem Status Onset Acidosis Acute
[2017-12-16] MEDS: POTASSIUM Cl (KCl) 100 ML IV SCH ×5 (00:37→11:32)
[2017-12-16] MEDS: FAMOTIDINE 20 MG/NACL 50 ML IV SCH (08:01)
[2017-12-16] MEDS: ENOXAPARIN 40 MG/0.4 ML SYR SC SCH (08:08)
[2017-12-16 08:13] LABS: CREATINE KINASE 628 IU/L (0-156)
--- NOTE | 2017-12-16 09:28 | HOSPPROG ---
Hospitalist Progress Note Assessment/Plan: 27 yo F w depression found down w met acidosis, electrolyte disturbance, + trop encephalopathy: toxic. 2/2 multiple meds, resolved AGMA: ketosis, s/p bicarb gtt, now off. toxic alcohols considered, felt less likely given correction w IVF, also resolved + trop: multiple ekg's w no territorial changes. consider acidosis or pericarditis/myocarditis though crp <5. cards following echo normal trop peaked at 17, trending down CT coronary angiogram today, one time oral metoprolol dose prior to study NSVT: likely 2/2 hypokalemia, no recurrence overnight hypokalemia: continue repletion, along with mag polysubstance OD : presumed pill count OK will likely med clear after CT coronary study, then await TLC eval proph: sc heparin ? tylenol overdose: completed NAc dispo: icu. she warrants an M1 hold should she wish to leave AMA Subjective: Pt feels fine this morning. She is awake and alert. Denies intentionally trying to harm herself. Admits to "having some drinks". She blames her psychiatrist for medication changes. Objective: Vital Signs Temp Pulse Resp BP Pulse Ox 37.0 C 72 14 119/81 H 96 12/16/17 08:00 12/16/17 08:00 12/16/17 08:00 12/16/17 08:00 12/16/17 08:00 Laboratory Results 12/15/17 13:20 12/16/17 05:45 12/15/17 12/16/17 12/17/17 05:59 05:59 05:59 Intake Total 5086 2131 Output Total 2615 1800 Balance 2471 331 PT 17.5 SEC (12.0-15.0) H 12/14/17 05:25 INR 1.42 (0.83-1.16) H 12/14/17 05:25 - Physical Exam Constitutional: no apparent distress Eyes: PERRL Ears, Nose, Mouth, Throat: moist mucous membranes Cardiovascular: regular rate and rhythym Respiratory: no respiratory distress, clear to auscultation Gastrointestinal: normoactive bowel sounds, soft, non-tender abdomen Skin: warm Musculoskeletal: full muscle strength Neurologic: AAOx3 Psychiatric: interacting appropriately, other (denies suicidality or homicidality) ICD10 Worksheet Patient Problems: Problems Problem Status Onset Acidosis Acute
[2017-12-16] MEDS ORDERED: ACETAMINOPHEN/ASA/CAFFEINE 1 EACH TAB PO PRN (10:26)
[2017-12-16] MEDS ORDERED: METOPROLOL TARTRATE 25 MG TAB PO ONE ×2 (11:57→13:33)
[2017-12-16] MEDS: busPIRone 10 MG TAB PO PRN (14:50)
[2017-12-16] MEDS: POTASSIUM Cl (KCl) 40 MEQ in NS 1,000 ML IV SCH (14:53)
--- NOTE | 2017-12-16 15:20 | PDCARPN ---
Cardiology Progress Note Assessment/Plan: Assessment/Plan: 27-year-old female with a history of anxiety and depression as well as polysubstance abuse with past use of alcohol and cocaine. She was admitted on December 13 minimally responsive having been found down at home. By report, she had been down for at least 14 hr. Her hospital course has been complicated by profound hypokalemia, peak troponin of 17, and encephalopathy. 1. Positive troponin: Her echocardiogram shows normal systolic and diastolic function and no regional wall motion abnormalities. This is highly unlikely to represent a problem with her coronary arteries. This may represent hypoperfusion and or toxic insult from drugs and acidosis. Other possibility includes arrhythmia with hypoperfusion. Myocarditis essentially ruled out with normal ESR and CRP. Troponin is trending down. CT coronary angiography for completeness once she is clinically stable. 2. Encephalopathy: Tox screen was only positive for amphetamines. Head CT without acute process. She was prescribed several medications as an outpt to treat anx/depression. She is much improved today. 3. Nonsustained ventricular tachycardia: She has had short runs of 3 beats. None in last 24 hours. Ejection fraction is normal. This is likely related to electrolyte abnormalities. Continue repletion protocols. Would absolutely avoid any QT prolonging medications. 4. Hypokalemia: The patient's family reports several days of poor p.o. Intake as well as vomiting and diarrhea. Her initial ketosis and acidemia were concerning for DKA, however the hypokalemia is incongruent with this. hGA1C normal. Admission glucose was normal. 5. History of anxiety and depression and past polysubstance abuse. In reviewing her outpatient medication regimen she is on several psychoactive medications. This will need to be addressed and, as above, would avoid amphetamine containing drugs or medications that can prolong the QT interval. 12/16/17 15:16 Subjective: She reports actually feeling fairly well. No dyspnea or angina. She has no recollections of the events leading up to admission. She does not admit that she was drinking the night before admission. Reviewed/Discussed With: family, hospitalist (Dr. Seay) Objective: Vital Signs (8 Hrs) Temp Pulse Resp BP Pulse Ox 12/16/17 14:00 73 16 118/86 H 96 12/16/17 12:00 90 13 120/99 H 97 12/16/17 10:00 78 16 131/97 H 96 12/16/17 08:00 37.0 C 72 14 119/81 H 96 Intake/Output (24 Hrs) 12/15/17 12/16/17 12/17/17 05:59 05:59 05:59 Intake Total 5086 2131 Output Total 2615 1800 2700 Balance 2471 331 -2700 Intake: IV Intake (ml) 2374 521 IV Infused (ml) 2712 1610 Acetylcysteine Inj 5,900 600 mg In D5w 1,000 ml @ 64. 344 mls/hr IV ONCE ONE Rx #:[id number] POTASSIUM Cl (KCl) 100 ml 372 @ 100 mls/hr IV Q1H CLYDE Rx#:[id number] POTASSIUM Cl (KCl) 40 meq 1610 In Ns 1,000 ml @ 75 mls/ hr IV CONT CLYDE Rx#: [id number] Sodium Bicarbonate 150 1740 meq In D5w 1,000 ml @ 75 mls/hr IV CONT CLYDE Rx#: [id number] Output: Urine (ml) 2615 1800 2700 Catheter 2615 1800 Toilet 2700 No acute distress. Regular rate and rhythm without murmur rub gallop Lungs clear bilaterally wheeze rhonchi rales No lower extremity edema Result Diagrams: 12/15/17 13:20 12/16/17 05:45 Cardiac Labs: Cardiac Lab Results (72 Hrs) 12/16/17 12/15/17 12/14/17 05:45 04:30 23:54 CK-MB (CK-2) Fraction 4.63 H 32.50 H Troponin I 14.900 H 15.600 H 12/14/17 12/14/17 12/14/17 15:45 11:15 05:25 CK-MB (CK-2) Fraction 97.10 H Troponin I 17.500 H 17.400 H 12.200 H 12/14/17 12/13/17 00:25 20:30 CK-MB (CK-2) Fraction 15.70 H Troponin I 5.120 H 0.945 H Telemetry: Normal sinus rhythm ICD10 Worksheet Patient Problems: Problems Problem Status Onset Acidosis Acute
--- NOTE | 2017-12-16 15:58 | ASMTCMCOM ---
CM Note CM Note Notes: "Family Meeting" See "Notes" Family her from [place], [place] and [place]. All very concerned about their sister, daughter. They report that patient is very depressed, has low self esteem and has been feeling "sick" for weeks. They feel that she was on too many medications through her psychiatrist and has had issues with ETOH addiction since age 17. Patient has had trauma in her life and a previous SA. Her roommates were not at home, family were busy attending to their dying grandfather. Patient was found behind a locked bathroom door that had to be knocked down after injesting ETOH and medications. Family concerned that this was an intentional OD. Date Signed: 12/16/2017 03:57 PM Electronically Signed By:Joan Christina LCSW
[2017-12-16] MEDS ORDERED: IOPAMIDOL (ISOVUE 370) 100 ML BTL IV ONE ×2 (16:12→16:16)
[2017-12-16] MEDS ORDERED: POTASSIUM CL 10 MEQ TAB PO ONE (20:27)
--- NOTE | 2017-12-16 22:23 | ASMTTLCEVL ---
TLC Evaluation - Basic Information Evaluation Start Date and 12/16/2017 07:30 PM Time Hospital Status Answers: Voluntary 72-hr M1 Hold Start Date 12/16/2017 07:30 PM and Time Patient statement Notes: " I'm still a little fuzzy about what happened. I told the hospitalist I took the trileptal and lamictal for a couple of weeks and I developed sores on my tongue, I couldn't eat, I had arthritis in my hand. My Dr. told me to push through it." Narrative Notes: Pt is a 27 year old female who was brought to [facility] ED on 12/13/17 by [facility] after she was found unresponsive by her roommates and police. Pt's brother who lives in [place], [place] stated he had spoken to her the night before and pt sounded "hung over, slurring her words." BOC stated he was mad because he thought she was using drugs again but he stated he was also concerned so he contacted police. BOC stated the police knocked on her door Friday night but there was no answer and because she was not an imminent danger, they did not break the door down. BOC stated they waited until morning when both he and pt's FOC attempted to reach pt but were unable to do so. They called police again for a welfare check where they did find pt unresponsive. This auto service writer met with pt's brother, 2 sisters and mother. Family stated pt has a hx of depression and anxiety and ADD and believe that she is "really depressed as she has stressors at work and most recently, her friends have told her they do not want to be friends with her any longer." The family is not sure what medications pt took but BOC stated he went back to her apartment and found prescription bottles for Vyvance, Buspar and Kolonopin and a medication from [place] that is used to treat narcolespy. BOC stated all the pills were accounted for. Case management note indicated pt believed this was an intentional OD but this auto service writer clarified with pt's family and they stated they do not believe this OD was intentional but rather "an avoidance of her problems." SOC stated that recently pt told her that "everything hurts, I feel abandoned by my friends." SOC stated this is unusual for pt to express herself in this way as she usually keeps it in. Family stated pt has suffered some trauma and has not been willing to confront it and would rather "take a pill to fix it." Pt told this auto service writer she has been resistant to talking to a therapist but is willing to try and find someone that might fit her needs. Two weeks ago pt stated she was titrating down off of her tripletal and stated she called her mother to ask for herlp. MOC stated pt was in a lot of physical pain, unable to get into shower by herself. MOC stated when she left, pt was doing much better. Pt denies that this was a suicide attempt and stated, " I was just trying to feel better." Pt told this auto service writer again at the end of this evaluation, " I do not want to ." Diagnosis History Notes: Pt has a hx of depression, anxiety and ADD. Prior suicide attempts Notes: Pt denies. Pt stated she has had suicidal thoughts in the past but never has acted on them. Per MOC, pt only makes SI statements when she is intoxicated. Per MOC, 1.5 months ago, she was on face time with pt and pt told MOC, " I drank bleach," then started laughing. MOC stated pt did not really drink bleach but was intoxicated at the time. Prior hospitalizations Notes: No prior psych hospitalizations but 4 years ago pt was admitted for substance abuse tx. Pt was inpt for 60 days. Treatment Responses Notes: Pt stated she found some aspects of rehab helpful. History of violence Notes: Pt denied any hx of violence. Psychiatrist: Dr. Lai Medications (name, dosage, route, freq uency) Notes: Adderral Kolonopin Trileptal Lamictal Pt does not know the doses of these meds. Allergies/Reaction Notes: NKA Sleep Notes: WNL Appetite Notes: WNL Medical/Surgical history Notes: None reported Substance use history (frequency, intensity, his tory, duration) Notes: Pt has a hx of cocaine, prescription pill abuse 4 years ago. Pt stated she "partied really hard for about a year." Pt denied using any drugs currently. Pt stated, " I previously tried self medicating with ETOH and CBD." Pt stated she drinks currently and when asked frequency/duration, pt stated, " I don't know, not every night. I try to be chill and not do it every day." Utox pos for amphetamine. Bal was .0. Family composition Notes: Pt has 2 sisters, 1 boc and both parents. Her family currently lives in [place], [place]. While in the hospital, pt's GFOC . Need for family Answers: No participation in patient's care Family psychiatric/substance abuse history Notes: None reported. Developmental history Notes: Pt stated, " It was shit but whatever." Pt stated she first started feeling depressed when she was 8 years old. Pt stated her parents fought a lot but denied any childhood abuse. Pt stated she suffered one concussion at age 10 when she fell off a swing. Abuse concerns Answers: None Marital status/children Notes: Unmarried, no children. Living situation Notes: Pt lives in [facility] with 2 roommates. Sexual history/orientation Notes: Heterosexual. Peer support/family strengths Notes: Pt stated, " My friends latasha left. Told me they don't want to see me anymore." Pt stated her roommate Layne and her have a good relationship. Education level/history Notes: Pt completed 2 years of college. 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 Pt states she does not enjoy her job. Notes: None Legal Notes: Pt denied any legal problems. Confucianist/Spiritual Notes: None that would interfere with tx. Leisure Notes: Pt stated she does not have any hobbies right now. Collateral Notes: Family. TLC Evaluation - Mental Status Exam Appearance: Answers: Appropriate Eye Contact: Answers: Intermittent Mood: Answers: Euthymic Affect: Answers: Calm Silly Behavior: Answers: Cooperative Speech: Answers: Relevant Logical Clear Thought Process: Answers: Organized Alert Insight: Answers: Fair Judgement: Answers: Poor Depression Answers: Diminished Interest Signs/Symptoms: Hallucinations: Answers: None Current Stage of Change Answers: Precontemplation Pt reported to have Answers: No suicidal/self-injuring ideation/behavior? Pt reported to be making Answers: No suicidal/self-injuring threats? Pt reported to have Answers: No aggression/assault ideation/behavior? Pt reported to be making Answers: No aggression/assault threats? Pt exhibits inability to Answers: No care for self/grave disability? Patient has a specific Answers: No plan? History of Answers: Yes suicidal/self-injuring ideation, behavior, or threats? History of Answers: No aggressive/assaultive ideation, behavior, or threats? History of serious Answers: No physical harm to self/others while in treatment setting? TLC Evaluation - Suicide/Homicide Risk Suicide Risk Factors: Answers: < 20 or > 40 Years of Age Alcohol/Heavy Drug Use Inadequate Social Support Lack of Social Support Recent of Loved One Single Unstable Living Situation Homicide/violence risk Answers: None factors: Current Suicidal Answers: No Ideation? Current Suicidal Ideation Answers: No in the Past 48 Hours? Current Suicidal Ideation Answers: No in the Past Month? Suicide Internal Answers: Absence of Psychosis Protective Factors: Suicide External Answers: Social Support Protective Factors: Ranking of patient's Answers: Low suicidal risk: Ranking of patient's Answers: Low homicidal risk: TLC Evaluation - Wrap-up AXIS I Diagnosis (include DSM-V and ICD-10 codes), must also be entered in [employer], which is the source of truth. Notes: MAJOR DEPRESSIVE DISORDER, RECURRENT, SEVERE 296.33 (F33.2) ATTENTION DEFICIT/HYPERACTIVITY DISORDER COMBINED PRESENTATION 314.01 (F90.2) Evaluation End Date and 12/16/2017 10:20 PM Time (HH:SINDI): Date Signed: 12/16/2017 10:22 PM Electronically Signed By:Opal Burger
[2017-12-17] MEDS: busPIRone 10 MG TAB PO PRN (04:07)
[2017-12-17] MEDS: ENOXAPARIN 40 MG/0.4 ML SYR SC SCH (09:41)
[2017-12-17 12:58] VITALS: BP 117/79
[2017-12-17] MEDS ORDERED: hydrOXYzine HCL 10 MG TAB PO ONE (13:01)
--- NOTE | 2017-12-17 13:07 | PDINTPN ---
Director Visual Progress Note Assessment/Plan: 27 F with history of polysubstance abuse found down after 14 hours since last contact and lethargic. Tox screen with amphetamines, but source not clear. troponin peaked at 17 and trending down, followed by cards. Minimal arrythmias noted but multiple electrolyte abnormalities found and corrected. * Altered mental status from presumed polysub OD- amphetamines on tox screen but treated by psych with adderall. Exact etiology unclear, but psych eval pending. Family and patient want to change outpatient psychiatrist. * Troponin- improving. Echo unremarkable and CT negative as well as ESR, CRP. * Metabolic acidosis improved. HCO3 dc'd. * LFTs continue to rise. Probably related to hypoperfusion and falling. * OK for floor unless M1 in place. await psych eval 12/17/17 13:05 Subjective: normal mental status today. Reports episode related to on/off psych meds without intention to harm herself Objective: Vital Signs Temp Pulse Resp BP Pulse Ox 36.9 C 70 20 117/79 97 12/17/17 12:00 12/17/17 12:00 12/17/17 12:00 12/17/17 12:00 12/17/17 12:00 Laboratory Results 12/15/17 13:20 12/17/17 03:40 12/16/17 12/17/17 12/18/17 05:59 05:59 05:59 Intake Total 2131 3806 Output Total 1800 3700 Balance 331 106 PT 17.5 SEC (12.0-15.0) H 12/14/17 05:25 INR 1.42 (0.83-1.16) H 12/14/17 05:25 Physical Exam - Physical Exam General Appearance: WD/WN, alert, no apparent distress Neck: supple Respiratory: lungs clear, normal breath sounds, No respiratory distress, No accessory muscle use Cardiac/Chest: regular rate, rhythm, No edema Abdomen: non-tender, soft, No distended Skin: normal color, warm/dry, No cyanosis Lymphatic: no adenopathy Extremities: No pedal edema Neuro/Psych: alert, normal mood/affect, oriented x 3 ICD10 Worksheet Patient Problems: Problems Problem Status Onset Acidosis Acute
--- NOTE | 2017-12-17 13:45 | PDCARPN ---
Cardiology Progress Note Assessment/Plan: Assessment/Plan: 27-year-old female with a history of anxiety and depression as well as polysubstance abuse with past use of alcohol and cocaine. She was admitted on December 13 minimally responsive having been found down at home. By report, she had been down for at least 14 hr. Her hospital course has been complicated by profound hypokalemia, peak troponin of 17, and encephalopathy. 1. Positive troponin: Her echocardiogram shows normal systolic and diastolic function and no regional wall motion abnormalities. Elevated troponin may represent hypoperfusion and or toxic insult from drugs and acidosis. Other possibility includes arrhythmia with hypoperfusion or drug induced coronary vasospasm. Myocarditis essentially ruled out with normal ESR and CRP. Troponin is trending down. CT coronary angiography is normal. 2. Encephalopathy: Tox screen was only positive for amphetamines. Head CT without acute process. She was prescribed several medications as an outpt to treat anx/depression. She is much improved today. 3. Nonsustained ventricular tachycardia: She has had short runs of 3 beats. None in last 3 days. Ejection fraction is normal. This was likely related to electrolyte abnormalities. Would absolutely avoid any QT prolonging medications. Discussed with psychiatry. 4. Hypokalemia: The patient's family reports several days of poor p.o. Intake as well as vomiting and diarrhea. Her initial ketosis and acidemia were concerning for DKA, however the hypokalemia is incongruent with this. hGA1C normal. Admission glucose was normal. Hypokalemis resolved. 5. History of anxiety and depression and past polysubstance abuse. In reviewing her outpatient medication regimen she is on several psychoactive medications. She is currently on no psych meds. Would avoid amphetamine containing drugs or medications that can prolong the QT interval. EKG prior to discharge. The patient is moving to [place] with her family. She should establish care with psychiatry and also Cardiology for a surveillance EKG. 12/17/17 13:52 Subjective: She feels better. She denies abdominal pain, chest pain, or dyspnea. Reviewed/Discussed With: family, hospitalist (psychiatry, Dr. Talavera) Objective: Vital Signs (8 Hrs) Temp Pulse Resp BP Pulse Ox 12/17/17 12:00 36.9 C 70 20 117/79 97 12/17/17 10:00 70 14 135/85 H 92 12/17/17 08:00 36.7 C 66 14 135/85 H 97 12/17/17 06:00 95 17 114/55 L 94 Intake/Output (24 Hrs) 12/16/17 12/17/17 12/18/17 05:59 05:59 05:59 Intake Total 2131 3806 Output Total 1800 3700 Balance 331 106 Intake: Oral (ml) 2000 IV Intake (ml) 521 IV Infused (ml) 1610 1806 POTASSIUM Cl (KCl) 40 meq 1610 1806 In Ns 1,000 ml @ 75 mls/ hr IV CONT CLYDE Rx#: [id number] Output: Urine (ml) 1800 3700 Catheter 1800 Toilet 3700 Other: Intake Quantity Yes Sufficient Number of Voids Toilet 4 No acute distress. Regular rate and rhythm without murmur or gallop Lungs clear without wheeze rhonchi or rales No lower extremity edema Result Diagrams: 12/15/17 13:20 12/17/17 03:40 Cardiac Labs: Cardiac Lab Results (72 Hrs) 12/16/17 12/15/17 12/14/17 05:45 04:30 23:54 CK-MB (CK-2) Fraction 4.63 H 32.50 H Troponin I 14.900 H 15.600 H 12/14/17 15:45 CK-MB (CK-2) Fraction Troponin I 17.500 H Telemetry: Normal sinus rhythm ICD10 Worksheet Patient Problems: Problems Problem Status Onset Acidosis Acute
--- NOTE | 2017-12-17 14:10 | CPEKG ---
Heart Rate: 61 RR Interval: 984 P-R Interval: 128 QRSD Interval: 84 QT Interval: 436 QTC Interval: 440 P Fordyce: 41 QRS Fordyce: 50 T Wave Fordyce: 49 EKG Severity - NORMAL ECG - EKG Impression: SINUS RHYTHM Electronically Signed By: Calista Bhakta 17-Dec-2017 16:16:40
--- NOTE | 2017-12-17 16:00 | PDCONSULT ---
Heading Saw Operator Note: PSYCHIATRY MD CONSULTATION Called by [facility] last pm regarding this patient and concerns for some inconsistencies in history, readiness to discharge given her psychiatric history , medications, substance use and having been found down 12/13 unresponsive. Discussed case with hospitalist Dr. Michelle Seay, also met with family after lengthy interview with patient. Phone call to outpatient psychiatrist as well. Please refer to [facility] report for additional information. RECOMMENDATIONS: -Patient is not felt to be acutely suicidal or at any imminent risk for harm to self/others nor is she gravely disabled and therefore does not meet criteria for M-1 or involuntary psychiatric hospitalization. She consistently denied any suicidal thoughts, plan or intent, and feels glad to be alive, and denies that precipitant to admission was related to any intention to end her own life. She acknowledges last recalling drinking EtOH. She also is absolutely not interested in voluntary inpatient psychiatric or dual diagnosis treatment. -She reports desire to discontinue all medications, including all psychotropics , and to no longer take her herbal supplements etc after this frightening experience she does not even clearly recall. This was felt to be completely reasonable at this time. Given available info and current sxs with recent events , I support discontinuation of all psychotropics, with close monitoring of symptoms and increased support by family, and establishing f/u psych care at her new destination. With her reported anxiety and potential increase stress in being around extended family for an upcoming , she agrees to trial dose of Hydroxyzine 25mg prn for anxiety, and could fill this Rx after d/c if finds helpful. This was ordered but then canceled after d/w cardiology who expressed concerns about any meds with any even small risk for QT prolongation, given her cardiac issues on admission. Patient was fine with this, as was family, and no medications were prescribed or recommended at time of discharge. -In conjunction with very supportive family, patient plans to discharge into the care of her family and will move out of state to live with siblings and establish psychiatric care both with psychiatrist and therapist locally, preferably with focus on dual diagnosis to address substance use issues. Family and patient all agreed to this plan. Family was also instructed to take patient to nearest ER if any mental health concerns emerge around safety, depression/SI , or even concerns for relapse with substance use or any unexplained alteration in mental status. Also mentioned to family to monitor cognition over next few weeks/months, if noted not at baseline due to any possible hypoxic/ischemic injury, may take time to return to baseline or consider f/u with neuropsych assessment. -Message was left with outpatient psychiatrist Dr. Alvarado Lai. Family has contacted him as well. BRIEF HX: 27yo CF brought to [facility] ER on 12/13 by [facility] after found unresponsive by roommates and police. She had called brother the night before and sounded "hung over, slurring her words" per [facility] report, and brother was concerned that she relapsed into substance use. When no response the next AM, welfare check was initiated and patient was found unresponsive. She reportedly has a history of substance use, but also depression, anxiety and was diagnosed with ADD, and has had several stressors both at work and socially recently. Review of her prescription medications in her apt noted that medications were taken as prescribed, with no evidence of overtaking pills and no empty bottles or meds otherwise unaccounted for, but there were several Rx bottles for different psychotropics, also OTC supplements and pills she ordered online labeled as Modafanil. She has reportedly also had several recent med changes by outpatient psychiatry. Siblings and mother present, came from out of town to support patient and encourage her to leave [place] and return home with them, which patient stated she was willing to do. No family member, nor patient herself, felt this OD was intentional, but rather accidental, with concerns that her Rx pills/OTC supplements/online-ordered pills in conjunction with recent prolonged physical illness with GI sxs, and adding EtOH binge the PM prior to admission caused the AMS. Per hx, mother also did not feel this OD was intentional. She came to visit pt 1 week ago for 5d b/c pt was c/o feeling physically ill with N/V/D, wt loss, body aches, decr sleep, head aches/back pain. Had apparently also felt this way a couple of weeks earlier, and presented to urgent care 2-3x over course of a few weeks. Was told possibly had a virus. Also felt she had s/e or bad reactions to psychotropic med trials/changes over past several weeks. Had not felt suicidal. Mother had stated patient had expressed SI when intoxicated in past, but no prior attempts. On eval, patient reported living in [place] has been stressful. Has been here 1.5yr "alone" (becomes tearful) after parents left and moved to [place]. States 3 boyfriends left her during this time, and her friends seem only to be supportive when she is depressed. "I'm alone, I have shitty friends...I want to move where others care about me". Feels being under a lot of stress "caused my body to shut down." States it took 3 months to finally find a psychiatrist, and established with him in mid-October about 6 weeks ago. "He said I'm not bipolar, but that I have walking/talking depression". Reports trial of 3 different SSRI' s over the years, around the time she was in drug rehab 4 years ago, with no benefit. Current psychiatrist started her on Trileptal "which gave me mouth sores...I read online that that can happen", and one week later started Lamictal "I still had the sores, and it made my hands numb" so she stopped it 2 weeks ago, then started Adderall "to buffer the abrupt stopping of the other psych meds"...And recalled trial of Vyvanse which she states "put me in autopilot, helped me lift off in the morning". But otherwise felt her psychiatrist "pushed the hard stuff on me (apparently referring to brief trial low-dose Latuda) and she does not want to return. Admits she did not disclose to her psychiatrist that she was ordering pills online, notably Modafanil. "I think I had a few drinks night, not much, not sure...2-3 Vodka spritzers?...I came to Friday night or Friday..." States this whole experience was "scary," scary to wake up and not know where or why she was in hospital or what happened. "I didn't try to kill myself, it was totally unintentional...when I passed out, I didn't think that would happen". Asked to have all pills tossed into garbage can. Admits to having SI several months ago, 07/2017 but not since then, and was hopeful about getting into psychiatric treatment. States prior to this she was "self-medicating" with EtOH, and has experienced SI in this context before. Admits prior to admission, she recalls feeling depressed and physically not well , sleeping all night until noon, missing work, feeling lonely. But presently does not feel depressed, rather somewhat confused about having lost the last few days with no recall. Adds "it's a relief to have people around" who care about her. Denied any psychotic symptoms. PAST PSYCH/SUBSTANCE USE HX: as noted above and in [facility] report. +hx 60day drug treatment program about 4 yrs ago. no past inpt psych hx. alludes to hx of childhood trauma but does not want to disclose/discuss. FAMILY PSYCH HX- denied PAST MEDICAL HX- refer to EMR/hospitalist notes MSE: calm, cooperative, good eye contact, unkempt hair, resting in hospital bed , speech nml rate, soft-spoken, decr prosody. Affect constricted/restricted altho became briefly tearful at one point as noted. mood - still a little confused, occasionally feeling mildly anxious about situation but not presently , denied feeling depressed. thought process linear, goal-directed responses altho not always sure of time line regarding meds and recent events, no psychosis, no paranoia, denied any manic sxs, denied any AH/VH or any SI either passive or active, denied any thoughts to harm others. cognition seemed conversationally intact, although with amnesia for last few days as noted. insight and judgment seemed fair. no formal cognitive testing done. IMPRESSION: 27yo with history of substance use and depr/anxiety, admitted with AMS after found down. Consistently denied suicide attempt, admitted to EtOH, recent physical illness, mult recent psychotropic med changes, and taking pills she ordered online for her reported ADD. DIAGNOSIS: Encephalopathy, resolved Depressive d/o, unspecified Anxiety d/o, unspecified ADD by history EtOH use d/o, unspecified r/o stimulant use d/o
--- NOTE | 2017-12-17 21:00 | GDS ---
[f rep st] DISCHARGE SUMMARY DISCHARGE DIAGNOSES: 1. Polysubstance overdose, remains unclear if this was intentional or unintentional. 2. Toxic encephalopathy, resolved. 3. Anion gap metabolic acidosis, resolved. 4. Elevated troponin, possibly secondary to vasospasm in the setting of amphetamine use. 5. Nonsustained ventricular tachycardia, likely secondary to hypokalemia, resolved. 6. Hypokalemia, resolved. 7. Mood disorder, not otherwise specified. 8. History of polysubstance abuse. IMAGING STUDIES/PROCEDURES: 1. Head CT revealed dysconjugate gaze. Otherwise, no brain abnormality was identified. 2. Abdomen CT showed diffuse steatosis of the liver. No bowel obstruction or perforation and a dist ended urinary bladder. Otherwise normal. 3. Echocardiogram showed normal left ventricular systolic function with ejection fraction of 70%. N o regional wall motion abnormalities. Normal right ventricular function, mild aortic regurgitation. 4. CT coronary angiogram showed normal coronary anatomy with widely patent coronary arteries without plaque, stenosis or occlusion. Also normal caliber of the thoracic aorta with no dissection. CONSULTANTS: 1. Dr. Harshal Brooks, emblem drawer in. 2. Dr. Ghulam Rasmussen, Cardiology. 3. Dr. Sandra Talavera, Psychiatry. HISTORY: For details, please see history and physical dated December 13, 2017. In brief, the patient is a 27-year-old female with a history of polysubstance abuse and underlying mood disorder, most promin ently with anxiety, depression, and ADD, presented to the emergency department after being found unre sponsive, locked in her bedroom. Paramedics were called, and they had to kick the door down. She wa s brought to the emergency department with a dense encephalopathy and anion gap metabolic acidosis, a nd she was admitted to the intensive care unit for suspicion for polysubstance overdose. HOSPITAL COURSE: Patient was admitted to the intensive care unit. She was started on a bicarb drip for her metabolic acidosis, which resolved. Her troponin was elevated and teresa to 17 before trending down. There was suspicion for coronary artery vasospasm given her outpatient medications, including 2 different forms of amphetamine. Cardiology consult was obtained. She did undergo a CT coronary a ngiogram, which showed completely normal coronary arteries. She remained chest pain free. An echoca rdiogram was performed without wall motion abnormalities and showed normal left ventricular function. She did have a couple of very brief runs of nonsustained Vtach. This was thought secondary to hypo kalemia, which was as low as 2.5. Her potassium was replaced. She had no further evidence of cardia c arrhythmias. Care was taken to avoid QT-prolonging agents. Once she was medically cleared, Psychi atry consult was obtained. It is recommended she discontinue all of her psychotropic medications, wh ich she had accumulated many. Per the evaluating psychiatrist, she was deemed to be neither suicidal , homicidal, or grave harm to herself. It was felt she was safe for discharge home with her family w here she will travel back to [place] and pursue close psychiatric followup. Consideration was gi vale to hydroxyzine for anxiety at discharge; however, due to the risk of QT prolongation with this dr derek in the setting of recent Vtach, this was deferred, and she is discharged home with no medication. Her family plans to arrange for close followup upon arrival to [place]. DISPOSITION: The patient is discharged home in stable condition. FOLLOWUP: With Psychiatry upon arrival to [place]. DISCHARGE MEDICATIONS: Please see [facility] for completed outpatient medication list. She can contin ue Excedrin at discharge. All other medications were discontinued, including BuSpar, Klonopin, Lamic miriam, Latuda, Adderall, Vyvanse, and Trileptal. /[id number]/MODL
== END 2017-12-17 15:25 | disposition home or self-care (01) | DRG 917 ==
LOC: EDUNIT# → F2N 16:28 → OBSVTOIN 17:04
PROVIDERS: ADMIT Internal Medicine; ATTEND Hospitalist
DX: T43.624A Poisoning by amphetamines, undetermined, initial encounter (principal); G92 Toxic encephalopathy; I47.2 Ventricular tachycardia; E87.2 Acidosis; F41.8 Other specified anxiety disorders; F98.8 Other specified behavioral and emotional disorders with onset usually occurring in childhood and adolescence; F10.11 Alcohol abuse, in remission; F14.11 Cocaine abuse, in remission; R33.9 Retention of urine, unspecified; R79.89 Other specified abnormal findings of blood chemistry
CPT/HCPCS: 80305; 92523-GN; G0480; J0132; J1650; J3475; J3480; Q9967